=== PATIENT | male | born 1990 | race Caucasian/White ===

== ENCOUNTER 2022-10-24 12:57 | Emergency (ER) | payer OTHER, SELFPAY ==
[2022-10-24 13:00] VITALS: BP 163/103; PULSE 124; RESP 14; TEMP 36.6; O2SAT 99; BMI 27.7
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
--- NOTE | 2022-10-24 13:22 | ECG_ITS ---
[facility] Test Date: 2022-10-24 Pat Name: Christiano Ríos Department: Room: Gender: Male Label Folder: : 1990 Requested By: Matthew Wyatt Order Number: [id number] Paola MD: Kapil Santamaria M.D. Measurements Intervals [place] Rate: 121 P: 66 WV: 179 QRS: 64 QRSD: 96 T: 57 QT: 338 QTc: 481 Interpretive Statements SINUS TACHYCARDIA NONSPECIFIC T-WAVE ABNORMALITY No previous ECG available for comparison Electronically Signed On 10-25-2022 7:53:40 CLINICAL BIOSTATISTICIAN by Kapil Santamaria M.D. [id number]
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
[2022-10-24 13:39] VITALS: RESP 18
[2022-10-24] MEDS: fentaNYL 50 mcg/mL INJ 2mL IVP (13:39)
[2022-10-24] MEDS: sodium chloride 0.9% 1,000 ML 999 ML IV (13:39)
[2022-10-24 13:49] LABS: Basophils % 0.5 %; Eosinophils # 0.1 10^3/uL (0.0-0.8); Eosinophils % 1.1 %; Hematocrit 47.4 % (42.0-52.0); Hemoglobin 16.9 g/dL (11.7-16.6); Lymphocytes # 2.2 10^3/uL (0.8-4.8); Lymphocytes % 34.9 %; Mean Corpuscular HGB Conc 35.7 g/dL (30.0-36.0); Mean Corpuscular Hemoglobin 29.2 pg (28.0-34.0); Mean Platelet Volume 11.7 fL (7.4-10.4); Monocytes # 0.5 10^3/uL (0.2-0.9); Monocytes % 7.4 %; Neutrophils # 3.46 10^3/uL (1.8-7.7); Neutrophils % 55.9 %; Nucleated Red Blood Cells % 0 %; Platelet Count 218 10^3/cmm (130-400); Red Blood Count 5.78 10^6/uL (4.1-5.3); Red Cell Distribution Width 11.2 % (12.1-15.1); White Blood Count 6.2 10^3/uL (4.0-10.0)
[2022-10-24 14:05] LABS: Alanine Aminotransferase 77 U/L (0-41); Albumin Level 4.8 g/dL (3.5-5.2); Alkaline Phosphatase 86 U/L (40-130); Anion Gap 19.4 (5-19); Aspartate Amino Transferase 34 U/L (0-40); Blood Urea Nitrogen 12 mg/dL (6-20); Calcium 9.2 mg/dL (8.5-10.5); Carbon Dioxide 22 mmol/L (22-29); Chloride 102 mmol/L (98-107); Glomerular Filtration Rate 85.5 mL/min (90-130); Glucose 147 mg/dL (65-115); Osmolality Calculated 292 mOsm/kg (285-295); Potassium 3.4 mmol/L (3.5-5.1); Sodium 140 mmol/L (136-145); Total Bilirubin 0.5 mg/dL (0.15-1.2); Total Protein 7.8 g/dL (6.6-8.7)
[2022-10-24] MEDS: iohexol 350 mg/mL 500 mL Btl (per mL) IV (14:15)
[2022-10-24] MEDS: ketorolac 30 mg/mL INJ 15 MG IVP (14:56)
[2022-10-24] MEDS: acetaminophen 500 mg Tablet 1000 MG PO (14:58)
[2022-10-24 15:00] LABS: Add Urine Microscopic? NO; Charge for UA Resulting for Rev
[2022-10-24 15:04] LABS: Urine Appearance Clear (CLEAR); Urine Color Yellow (Yellow)
[2022-10-24 15:05] LABS: Bilirubin Urine Neg (Negative); Blood Urine Neg (Negative); Glucose Urine UA Norm (Normal); Ketones Urine Negative (Negative); Leukocyte Esterase Urine Negative (Negative); Nitrate Urine Negative (Negative); Protein Urine Neg (Negative); Urobilinogen Urine Neg (Negative); pH Urine 5 (5-7)
[2022-10-24] MEDS: ondansetron 2 mg/ML SDV 2 mL 4 MG IVP (15:20)
[2022-10-24 18:25] LABS: Alcohol Level < 10 mg/dL (0-10)
[2022-10-24 19:24] LABS: Amphetamines Screen Urine Negative (Negative); Barbiturates Screen Urine Negative (Negative); Benzodiazepines Screen Urine Negative (Negative); Cocaine Screen Urine Negative (Negative); Opiate Screen Urine Negative (Negative); PCP Screen Urine Negative (Negative); THC Screen Urine Negative (Negative)
== END 2022-10-24 15:30 | disposition home or self-care (01) ==
PROVIDERS: Emergency Provider Emergency Medicine
DX: R07.9 Chest pain, unspecified (principal); S20.219A Contusion of unspecified front wall of thorax, initial encounter; S00.83XA Contusion of other part of head, initial encounter; V69.40XA Driver of heavy transport vehicle injured in collision with unspecified motor vehicles in traffic accident, initial encounter
CPT/HCPCS: 70450; 71260; 72125; 74177; 80053; 80306; 80307; 81003; 85025; 93005; 96361; 96374; 96375; 99285; J1885; J2405; J3010; J7030; Q9967